=== PATIENT | male | born 1950 | race Caucasian/White ===

== ENCOUNTER 2023-09-15 06:09 | Day surgery (SDC) | payer MEDICARE, SELFPAY ==
[2023-09-08 12:13] VITALS: BMI 32.6
[2023-09-15] VITALS (13 sets, daily range): BP systolic 111–147; BP diastolic 66–94; PULSE 67–94; RESP 12–21; TEMP 36.1–36.6; O2SAT 93–96; BMI 30.4; BMI 32.7
--- NOTE | 2023-09-15 06:32 | DI.RAD.S_ITS ---
PROCEDURE: XR KNEE LT 1TO2V INDICATIONS: TKA TECHNIQUE: 2 view(s) of the knee acquired. COMPARISON: None. FINDINGS: Bones: Patient is status post knee joint arthroplasty. Hardware components are in expected positions. Visualized bony structures are intact. Soft tissues: Overlying postoperative changes are noted. IMPRESSION: Expected post-operative appearance of a knee arthroplasty. Dictated by: Jose Luis Do M.D. on 09/15/2023 at 11:54 Approved by: Jose Luis Do M.D. on 09/15/2023 at 11:54
--- NOTE | 2023-09-15 07:14 | PM.PREOP ---
Pre-operative Note Interval Note History & Physical reviewed/Exam performed by Physician: Yes Changes to H&P: No
[2023-09-15] MEDS: CELECOXIB 200 MG CAPSULE 400 MG PO (07:16)
[2023-09-15] MEDS: ACETAMINOPHEN 325 MG TABLET 975 MG PO (07:16)
[2023-09-15] MEDS: LACTATED RINGERS 1,000 ML 42 ML IV ×2 (07:19→08:49)
[2023-09-15 07:36] LABS: Add Manual Diff / Slide Review NO; Basophils Absolute Auto 0 /uL (0-100); Basophils Percent Auto 0.5 % (0-2); Eosinophils Absolute Auto 700 /uL (0-450); Eosinophils Percent Auto 10.7 % (2-4); Hematocrit 43.5 % (41-53); Hemoglobin 14.8 g/dL (13.5-17.5); Lymphocytes Absolute Auto 1400 /uL (1100-4500); Lymphocytes Percent Auto 20.7 % (25-40); Mean Corpuscular HGB Conc 34.1 % (30-36); Mean Corpuscular Hemoglobin 36.8 PG (26-34); Mean Corpuscular Volume 107.6 fL (80-100); Monocytes Absolute Auto 600 /uL (0-900); Monocytes Percent Auto 8.1 % (3-14); Neutrophils Absolute Auto 4100 /uL (1500-7000); Platelet Count 253 X10^3/uL (150-400); Red Blood Cell Count 4.04 X10^6/uL (4.5-5.9); Red Cell Distribution Width 16.2 % (11.6-14.8); White Blood Cell Count 6.9 X10^3/uL (4.5-11.0)
--- NOTE | 2023-09-15 07:45 | P.OP_ITS ---
Operative Date/Time/Diagnoses Date of procedure: 09/15/23 Time of procedure: 08:00 Pre-op diagnosis: Left knee arthritis M17.12 Polycythemia vera Post-op diagnosis: same Procedure & Clinicians Procedure: Total knee arthroplasty left CPT code 77100 Robotic assisted surgery [id number] Computer-assisted navigation CPT code 16624 Same procedure as scheduled: Yes Indications: The patient is a 73-year-old male with end-stage [id number] knee arthritis. The patient has a significant valgus left knee arthritis. They have failed conservative treatment with activity modifications, injections, physical therapy and bracing. They has been indicated for total knee replacement. The risks and benefits of the procedure have been discussed with the patient even opportunity to ask questions. He has a comorbid condition of polycythemia vera. We discussed risks of wound healing problems, bleeding and thrombosis specific to his comorbid conditions and medications to manage it. Risks and benefits were weighed. The risks of surgery include but are not limited to infection,, wound healing problems, bleeding, fracture, loosening, persistence of pain, damage to nerves and blood vessels, need for additional procedures, DVT, PE, cardiopulmonary complications and . The patient expressed a thorough understanding of the risks and benefits of surgery and has elected to proceed. Consent was signed. During the operation the services of physician instructor adjunct surgical technician were medically indicated and necessary to provide the exposure of the operative site for the surgical procedure and to maintain the limb in a proper position to carry out the procedure safely and efficiently. Without a qualified botany laboratory assistant being present this would extend the operative procedure and would have made the procedure more technically difficult to perform. The instructor adjunct surgical technician was medically necessary for the proper positioning, retraction and manipulation of the limb, proper exposure, and manipulation of the tissue for implantation implants and closure. Surgeon: Stacie Chávez Radiation Control Technician: Linda Bateman Anesthesia Type: General, Peripheral nerve block and Local Operative Notes Findings: End-stage valgus knee arthritis left knee large osteophytes. Full-thickness cartilage loss. Closure Type: primary Specimen(s): none sent Prosthetic devices, grafts, tissues, transplants, or devices: Carreon and Nephew journey 2 bCS Femur Oxinium size 9 Tibia size 7 Poly 10 mm Patella 35 x 9 Estimated Blood Loss (mL): 50 Tourniquet time (min): 105 Procedure in detail: Patient was seen in the preoperative area where the patient and site of surgery were identified in the operative knee was marked informed consent confirmed. This was the left knee. Patient received the appropriate preoperative antibiotics this was 2 g of Ancef. And other preoperative medications and was taken to the operating room placed on operating table in the supine position. Spinal anesthetic were administered. The operative extremity was then prepped and draped in the standard sterile fashion with a nonsterile tourniquet high on the thigh. Patient was placed on the green foam bolsters. A lateral post was placed at the level of the proximal thigh /trochanter area as a lateral post. Formal time-out procedure was performed confirming the patient's side and site of surgery and administration of appropriate preoperative antibiotics and imp lants were in the room accounted for. All were in agreement. Patient received a preoperative dose of tranexamic acid and then a 2nd dose at tourniquet release Patient was prepped and draped in the standard sterile fashion and the foot was placed into the leg davalos. This was taken into high flexion and the incision was marked out over the anterior knee to the level of the medial tubercle tuber sd. The Esmarch was then used for exsanguination and the tourniquet was inflated to 250 mmHg. Was made through the skin and subcutaneous tissue in high flexion this was then brought down into 30? of flexion for the medial parapatellar arthrotomy. A marker pen was used to karla the arthrotomy site for later repair. Joint fluid was evacuated. The anterior osteophytes and soft tissues were removed. Routine medial release was initially made along the medial proximal tibia with Bovie. The patella was 1st cut using the saw sized and prepped and then subluxed throughout the case and protected. The leg was then taken into extension and the patella was everted and the patella was cut to accommodate the patellar button. This was sized to a 35 mm button for a 9 mm thickness to recreate the original dimensions of the patella. Poly was removed and the protector replaced and the patella was subluxed and the knee was taken back up into flexion and attention was returned to the femur. Then the rotational landmarks of Whitesides line and the trans epicondylar axis were marked on the femur with electrocautery. ACL and PCL were released. Then the Cori robotic pins were placed into the femur and tibia and the race set up. Landmarks were established and the robotic planning was commenced. Plan was developed and improved and adjusted as necessary to create a balanced knee. Robotic Initial alignment was noted to be 3? valgus plane correction to 0-1 degree of valgus. Femur external rotation was 5?. Knee was balanced 2 mm in extension and flexion. Plan was satisfactory the bur was used to remove the distal femur then the 5 in 1 cutting block was applied complete the femur cuts. Attention was then turned to the tibia and the tibial resection was made in accordance with the robotic planning. The trials were placed. And the femoral notch was cut a standard fashion using Reamer then slap hammer. The knee was trialed and the checked. Knee was balanced in flexion extension. Range of motion 0-135 degrees was obtained. The rotation femoral trial was marked Bovie on the bone and checked with a long timothy. The tibia was then finished with a drill and flange cut and then The trial implants were removed. Then in extension the posterior capsule was injected with a mixture of 40 mL of 0.25% Marcaine and 20 mL of 266 mg Exparel care to avoid excessive injection posterior laterally. The remainder of this was saved for the capsule and subcutaneous tissue and placed during cement curing. The wound and bone was irrigated with pulsatile lavage. This was then dried with a sponge. The components were verified and opened and the cement was mixed. Cement was applied to the components and then to the bone then the tibia was cemented in place 1st followed by the femur then the patella. Excess cement was removed. With care looking around the back of the knee. Remainder of the injection was injected around the capsule. trial poly was placed back in the leg was placed into extension for the patellar cementing. After this was cured approximately 15 minutes later and the dilute Betadine solution was placed for at least 3 minutes in the wound this was then irrigated out and the final poly was placed. This was a 10 mm mm poly. The tourniquet was released hemostasis was achieved. Final 1g of tranexamic acid was given IV at the time of tourniquet release. The capsule was closed with 1. Ethibond suture. Followed by a running Quill stitch. Subcutaneous layer was closed with 3-0 Vicryl suture. Skin was closed with a running V lock suture Stratafix Monocryl type suture and Dermabond. An tish dressing was placed . An Brodie wrap was applied. Anesthetic was terminated the patient was woken from anesthesia and taken to recovery room in good condition. There no immediate complications from this procedure. The patient will be maintained on a standard total knee replacement protocol with weight-bearing as tolerated. Complications: none Post-operative Condition: stable Disposition: PACU Plan for aftercare: Patient will be admitted postop for observation and repeat CBC in the morning due to his underlying polycythemia vera. If platelet level stabilized we will restart hydroxyurea postop day 1. Will maintain on 81 mg of aspirin. And will use 40 mg of Lovenox as a subcutaneous injection for DVT prophylaxis for 3 weeks postop. Tish dressing will remain in place. After 1 week and then the battery runs out the tish dressing hose can be cut.
[2023-09-15] MEDS: CEFAZOLIN 2 GM/100 ML PREMIX 100 ML IV ×2 (08:00→15:27)
[2023-09-15] MEDS: TRANEXAMIC ACID 1,000 MG VIAL 1000 MG INJ ×2 (08:04→10:03)
--- NOTE | 2023-09-15 08:19 | SUR.OPER ---
Supine on padded OR bed. Pillow under head, arms secured on padded armboards <90 degree abduction. Safety belt across torso. Non-operative leg secured with tape over blanket over lower leg. Operative leg secured in DeMayo positioner. Foam padded brace at thigh of operative leg.
[2023-09-15] MEDS: BUPIVACAINE 0.25% (PF) 60 ML, EPINEPHrine 0.15 MG INJ (08:27)
[2023-09-15] MEDS: BUPIVACAINE LIPOSOME 266 MG/20 ML VIAL INJ (10:00)
[2023-09-15] MEDS: BENZOCAINE/MENTHOL 1 LOZ PKT 1 EACH PO (10:56)
[2023-09-15] MEDS: LACTATED RINGERS 1,000 ML 120 ML IV (10:59)
[2023-09-15] MEDS: KETOROLAC 30 MG/ML VIAL 15 MG IV (11:07)
--- NOTE | 2023-09-15 11:59 | PC.NURSE ---
Pt to room 215 via bed from PACU. Pt is awake, alert, and oriented. IV infusing as ordered. SCD's on and running. Bed alarm on for safety. Requested Pt to not get up without assistance and to call for assistance as needed. Pt oriented to room, call light, bed controls, and tv controls. Pt denies nausea, pain, or shortness of breath. Encouraged ankle waves and deep breathing exercises. Water provided to drink. Pt denies needs at this time. Spouse has been called per Pt request.
--- NOTE | 2023-09-15 13:16 | OT.IPNOTE ---
Pt states still feels numb from waist down and not wanting to get up at this time. Able to request food from the pt from nursing.
--- NOTE | 2023-09-15 13:30 | PT.IIE ---
Current Diagnoses Unilateral primary osteoarthritis, left knee (09/15/23) Surgery Performed Operation Date: 09/15/23 07:45 Actual Procedures p Total Knee Arthroplasty - Robot(Left) - Stacie Chávez MD Surgical History (Last Updated 09/08/23 @ 13:11 by Bonnie Pierre, RN) Hx of hernia repair Hx of prostatectomy (~2019) Medical History (Last Updated 09/08/23 @ 13:14 by Bonnie Pierre, RN) HTN (hypertension) Osteoarthritis Polycythemia vera Prostate cancer Seasonal allergies Physical Therapy Inpatient Evaluation/Re-Eval M1 PT/OT-IP Prior Functional Status Start: 09/15/23 14:31 Freq: NEEDED Status: Active Protocol: Document 09/15/23 13:30 AB (Rec: 09/15/23 14:59 AB [id number]) Medical Review Prior Functional Status Medical History Reviewed Yes Communication able to make needs known Mobility and Gait pt stated that he was independent with all mobilities and ambulation without AD Social History Household Members spouse Living Arrangements Other Number of Floors (Floors) One Floor Number of Stairs To Enter/Railing? pt lives in a building above a bookstore with 18 steps L rail ascending to enter Home Environment Standard Height Toilet,Walk in Shower,Bidet Home Equipment Front Wheel Walker,Straight Cane,Hand Held Shower Additional Social History Comment spouse stated that she can assist pt but due to L ankle issue, can be limited with assistance she can provide M2 PT-IP Current Condition Start: 09/15/23 14:31 Freq: NEEDED Status: Active Protocol: Document 09/15/23 13:30 AB (Rec: 09/15/23 14:59 AB [id number]) Physical Therapy Current Condition Current Condition Evaluation Date 09/15/23 Treatment Diagnosis s/p L TKA; difficulty in walking Onset Date 09/15/23 M3 PT-IP Subjective Start: 09/15/23 14:31 Freq: NEEDED Status: Active Protocol: Document 09/15/23 13:30 AB (Rec: 09/15/23 14:59 AB [id number]) Subjective Physical Therapy Visit Type Type Initial Evaluation Visit Start Time 13:30 Visit Stop Time 14:30 Number of COMMUNICATIONS ASSISTANT Visits 0 Physical Therapy Visit Comments Patient Comments agreeable to do PT Therapy Pain Assessment Pain When Pain Assessed At Rest Pain Present Pain Present Pain Reported Location left knee Intensity 4 Scale Used Numeric (0 - 10) Pain Behaviors Guarding,Holding Area Pain Management Techniques Apply Cold,Distraction, Modification of Treatment,Re- positioning,Timing of Activity with Medications M4 PT-IP Mobility and Gait Start: 09/15/23 14:31 Freq: NEEDED Status: Active Protocol: Document 09/15/23 13:30 AB (Rec: 09/15/23 14:59 AB [id number]) PT-Bed Mobility Assessment Supine to Sit Supine to Sit Standby Assistance PT-Transfer Assessment Sit to and From Stand Sit to and from Stand Moderate Assistance,1 Person Assistance,Use of Upper Extremities Equipment Transfer Assistive Device Gait Belt,Front Wheeled Walker Orthotic/Prosthetic Devices or Brace: No Transfers Transfer Destination Chair Transfer Technique ambulated Transfer Ability Level of Assist Moderate Assistance,Maximum Assistance,1 Person Assistance ,Use of Upper Extremities Comments Mobility Comments pt supine in bed and agreeable to do PT. spouse in room with pt. pt stated that sensation on BLE and movement are back but still numb on his buttocks . obtained PLOF and home set up from pt. post-op folder provided and reviewed contents . reviewed HEP. BP in supine: 125/71 O2 sat: 96% DE: 66 pt completed heel slides prior to getting up. pt completed supine to sit SBA. able to sit on EOB SBA. c/o slight lightheadedness. BP checked: 121/68. pt stated that his LE is still sligthly numb. completed sit to stand mod A and max cues. pt unable to control his bladder and stated that he has to void. instructed pt to sit back on EOB. provided urinal. pt completed sit to stand again mod A and was able to maintain standing using FWW mod A while using the urinal. nurse in room to assist. pt sat back on EOB. assisted with gown and socks change. completed sit to stand from EOB mod A. assisted with brief management. pt ambulated in room 5 ft using FWW mod to max A and max cues. cued for L quads activation and pt unable to engage quads and stated that he cannot feel his quads and calf. instructed pt to backed up on to the chair. positioned pt on the chair. call light and table placed within reach. caregiver training set up with pt's spouse for tomorrow at 9 am. Gait Assessment Gait Gait Assistance Required: Moderate Assistance,Maximum Assistance Distance (Feet) 5 Able to Maintain Weight Bearing Status Yes During Gait Assistive Devices Assistive Device Gait Belt,Front Wheeled Walker Orthotic/Prosthetic Devices or Brace: No Gait Deviations General Gait Pattern Antalgic,Decreased Stride Length,Decreased Feet Clearance,Step-to Gait Factors Limiting Gait Function Factors Limiting Gait Function Decreased Activity Tolerance, Decreased Sensation,Decreased Strength,Difficulty Following Directions,Limited Range of Motion,Pain,Poor Balance,Poor Safety Awareness PT-Balance Assessment Sitting Balance and Reactions Static Sitting Balance Ability Normal Dynamic Sitting Balance Ability Good Standing Balance and Reactions Static Standing Balance Ability Fair Dynamic Standing Balance Ability Poor Device Used FWW M5 PT-IP Objective Assessments Start: 09/15/23 14:31 Freq: NEEDED Status: Active Protocol: Document 09/15/23 13:30 AB (Rec: 09/15/23 14:59 AB [id number]) Orientation Orientation/Cognition Level of Alertness Alert Orientation Name,Place,Situation Language Function Ability No Deficits Noted Safety Awareness Decreased Safety Awareness Memory Description No Deficits Noted Gross Range of Motion Lower Extremity ROM Assessment Left Impaired Impairments L knee flexion: ~ 70 deg L knee extension: ~ 15 deg less to 0 Strength Lower Extremity Strength Assessment Left Impaired Hip 4-/5 Knee 3+/5 Sensation Assessment Sensation Gross Sensation Right LE Impaired,Left LE Impaired Sensation Description Numbness Muscle Tone Muscle Tone WNL Yes M6 PT-IP Treatment Start: 09/15/23 14:31 Freq: NEEDED Status: Active Protocol: Document 09/15/23 13:30 AB (Rec: 09/15/23 14:59 [id number]) Physical Therapy Treatment Exercises Exercises Heel Slides Education Education Provided Precautions,Weight Bearing Status,Post-Op Packet,Safety M7 PT-IP Assessment and Plan Start: 09/15/23 14:31 Freq: NEEDED Status: Active Protocol: Document 09/15/23 13:30 AB (Rec: 09/15/23 14:59 AB [id number]) PT Summary Assessment and Plan Potential Rehabilitation Potential Fair Status of Condition at Evaluation Evolving Summary Impairments Pain,ROM,Strength,Balance, Coordination,Sensation,Tone, Cognition,Bed Mobility, Transfers,Gait,Activity Tolerance Assessment Summary pt is a 73 y/o M s/p L TKA POD 0. pt is WBAT on LLE. pt requiring mod to max A with mobility using FWW and only ambulated ~ 5 ft. pt with decrease L quads control and c /o numbness on quads and calf affecting mobility. caregiver training set up for tomorrow at 9 am. will continue to assess progress. Goals Bed Mobility Goal Independent Transfer Goal Independent,Front Wheeled Walker Gait Goal Independent,Front Wheel Walker Gait Distance 200 Other Goals up/down 18 steps L rail ascending SBA improve ambulation using LRAD ~ 300 ft mod I Days to Meet Goals 5 Frequency of Treatment Frequency Of Treatment Twice a Day Treatment Plan Physical Therapy Treatment Plan Bed Mobility Training,Transfer Training,Gait Training, Therapeutic Exercise,Balance Retraining,Post Op Education, Discharge Planning,Hot or Cold Pack,Neuromuscular Re-ed, Coordination Retraining,Manual Therapy Weight Bearing Status Weight Bearing Status Weight Bear as Tolerated Allowed Weight Bearing Amount (enter % LLE WBAT or #) (%) Recommendations To Nursing Amount of Assist Needed 1 Person Assist Discharge Recommendations PT Discharge Recommendations Home with Assistance, Outpatient PT Transportation Needs at Discharge Private Vehicle
[2023-09-15] MEDS: OXYCODONE IR 10 MG TABLET PO ×2 (13:40→17:36)
[2023-09-15] MEDS: SENNOSIDES 8.6 MG TABLET 17.2 MG PO (20:56)
[2023-09-15] MEDS: LACTATED RINGERS 1,000 ML 100 ML IV (20:59)
[2023-09-15] MEDS: TRAMADOL 50 MG TABLET PO (21:34)
[2023-09-16] MEDS: CEFAZOLIN 2 GM/100 ML PREMIX 100 ML IV (00:12)
[2023-09-16] MEDS: ACETAMINOPHEN 325 MG TABLET 650 MG PO ×2 (00:44→07:55)
--- NOTE | 2023-09-16 02:33 | PC.NURSE ---
Patient is alert and oriented. Breath sounds diminished but CTA with RA sat of 96%; on continuous oximetry. HRR. BP 111/66 which patient states is low for him so he declined Amlodipine. Denied nausea. BT present and has passed flatus. Voiding without dysuria, frequency or urgency. Is able to turn himself in bed. Ambulated in [place] to room 213 and back to room with walker and 1 assist; is weak but steady. Did have increased pain following ambulation so medicated with Tramadol. BRENDA dressing to left knee is intact and functioning and wrapped with taurus; no drainage noted. CMS is intact bilaterally. Is wearing bilateral calf SCD's when in bed. CIWA score was 0. Fall risk score is moderate and bed alarm is activated.
[2023-09-16] MEDS: TRAMADOL 50 MG TABLET PO (05:11)
[2023-09-16 05:45] LABS: Add Manual Diff / Slide Review NO; Basophils Absolute Auto 0 /uL (0-100); Basophils Percent Auto 0.1 % (0-2); Eosinophils Absolute Auto 0 /uL (0-450); Eosinophils Percent Auto 0.1 % (2-4); Hematocrit 39.5 % (41-53); Hemoglobin 13.2 g/dL (13.5-17.5); Lymphocytes Absolute Auto 800 /uL (1100-4500); Lymphocytes Percent Auto 6.6 % (25-40); Mean Corpuscular HGB Conc 33.3 % (30-36); Mean Corpuscular Hemoglobin 36.2 PG (26-34); Mean Corpuscular Volume 108.7 fL (80-100); Monocytes Absolute Auto 1300 /uL (0-900); Monocytes Percent Auto 11.5 % (3-14); Neutrophils Absolute Auto 9500 /uL (1500-7000); Neutrophils Percent Auto 81.7 % (50-75); Platelet Count 232 X10^3/uL (150-400); Red Blood Cell Count 3.64 X10^6/uL (4.5-5.9); Red Cell Distribution Width 16.1 % (11.6-14.8); White Blood Cell Count 11.6 X10^3/uL (4.5-11.0)
[2023-09-16 08:00] VITALS: BP 118/63; PULSE 77; RESP 16; TEMP 36.4; O2SAT 97
--- NOTE | 2023-09-16 08:34 | PM.DS.1 ---
History of Present Illness History of Present Illness Date Patient Seen: 09/16/23 Time Patient Seen: 08:34 Chief complaint: Knee pain Narrative: Left knee pain is [id number]. Denies fever or chills. No nausea or vomiting. Patient has several steps to get into his apartment. Patient's is home to assist him. Discharge Providers Provider Discharge Date: 09/16/23 Consults: 09/15/23 11:18 Consult to Discharge Planning Routine Comment: Consult to Occupational Therapy Evaluate & Treat Comment: Physician Instructions: Evaluate and treat Consult to Physical Therapy Evaluate & Treat Comment: Physician Instructions: postop TKA protocol Discharge provider: Anish Leon PA-C Summary Hospital Course Discharge Diagnosis: Left knee arthritis Hospital Course: Total knee arthroplasty left CPT code 59248 Robotic assisted surgery [id number] Computer-assisted navigation CPT code 05896 Same procedure as scheduled: Yes Indications: The patient is a 73-year-old male with end-stage gcwu-yr-fghz knee arthritis. The patient has a significant valgus left knee arthritis. They have failed conservative treatment with activity modifications, injections, physical therapy and bracing. They has been indicated for total knee replacement. The risks and benefits of the procedure have been discussed with the patient even opportunity to ask questions. He has a comorbid condition of polycythemia vera. We discussed risks of wound healing problems, bleeding and thrombosis specific to his comorbid conditions and medications to manage it. Risks and benefits were weighed. The risks of surgery include but are not limited to infection,, wound healing problems, bleeding, fracture, loosening, persistence of pain, damage to nerves and blood vessels, need for additional procedures, DVT, PE, cardiopulmonary complications and . The patient expressed a thorough understanding of the risks and benefits of surgery and has elected to proceed. Consent was signed. During the operation the services of physician surgical appliances salesperson were medically indicated and necessary to provide the exposure of the operative site for the surgical procedure and to maintain the limb in a proper position to carry out the procedure safely and efficiently. Without a qualified gynecological assistant being present this would extend the operative procedure and would have made the procedure more technically difficult to perform. The surgical appliances salesperson was medically necessary for the proper positioning, retraction and manipulation of the limb, proper exposure, and manipulation of the tissue for implantation implants and closure. Surgeon: Stacie Chávez Slitter Processed Film: Linda Bateman Anesthesia Type: General, Peripheral nerve block and Local Operative Notes Findings: End-stage valgus knee arthritis left knee large osteophytes. Full-thickness cartilage loss. Closure Type: primary Specimen(s): none sent Prosthetic devices, grafts, tissues, transplants, or devices: Carreon and Nephew vianca 2 bCS Femur Oxinium size 9 Tibia size 7 Poly 10 mm Patella 35 x 9 Estimated Blood Loss (mL): 50 Tourniquet time (min): 105 Patient admitted for left total knee arthroplasty. Patient consented to the same. Patient underwent total knee arthroplasty, left September 15, 2023. Patient is in his room recovering well as in stable condition. Patient's is home and available to assist him. Patient has several steps into his place. Patient has polycythemia vera. Labs reviewed. Restart hydroxyurea today. Patient will be on 81 mg of aspirin daily and 40 mg of Lovenox subQ for 3 weeks postop. Juan dressing instructions reviewed. Follow up outpatient orthopedic clinic in 2 weeks. Weightbearing as tolerated. Discharge home today after physical therapy is safe for home environment. Exam Vital Signs (past 8 hours): - 09/16/23 08:00 Temperature 97.5 F L Pulse Rate 77 Respiratory Rate 16 Blood Pressure 118/63 Pulse Oximetry 97 Oxygen Flow Rate 0 Oxygen Delivery Method Room Air Oxygen Flow Rate 0 Narrative Exam Narrative: 73-year-old male resting comfortably in bed in no apparent distress. Juan dressing is on and functioning. Neurovascular status is intact distal left lower extremity. Const General: cooperative and comfortable Nutritional Appearance: average body habitus Orientation: alert Resp Effort & Inspection: normal respiratory effort and able to speak in complete sentences Objective Labs 09/16/23 05:05 Labs: Laboratory Results - last 24 hr 09/16/23 05:05 WBC 11.6 H D RBC 3.64 L Hgb 13.2 L Hct 39.5 L MCV 108.7 H MCH 36.2 H MCHC 33.3 RDW 16.1 H Plt Count 232 Neut % (Auto) 81.7 H D Lymph % (Auto) 6.6 L Pershing % (Auto) 11.5 Eos % (Auto) 0.1 L Baso % (Auto) 0.1 Neut # (Auto) 9500 H Lymph # (Auto) 800 L Pershing # (Auto) 1300 H Eos # (Auto) 0 Baso # (Auto) 0 PFSH Medical History (Updated 05/22/24 @ 13:14 by Bonnie Pierre RN) Osteoarthritis Polycythemia vera Prostate cancer HTN (hypertension) Seasonal allergies Surgical History (Updated 09/08/23 @ 13:11 by Bonnie Pierre RN) Hx of prostatectomy (~2019) Hx of hernia repair Social History household members: spouse Smoking Status: Never smoker alcohol intake: current Discharge Assessment & Plan Assessment and Plan Assessment: Patient progressing as expected status post left total knee arthroplasty Plan of Treatment: Patient will be maintained on standard total knee replacement protocol. Weightbearing as tolerated. Restart hydroxyurea today. Lovenox 40 mg subQ daily x3 weeks, 81 mg aspirin daily. Juan dressing instructions reviewed Follow up outpatient Orthopedics in 2 weeks Discharge home today after physical therapy if safe for home environment. Discharge Plan Discharge Plan Patient Disposition: Home Discharge orders & Medications Discharge Orders: Discharge (Order); Ordered 09/16/23 Ordered By: Anish Leon Prescriptions: New enoxaparin [Lovenox] 40 mg/0.4 mL syringe 40 mg SUBCUT DAILY Qty: 4 1RF Rx Instructions: postop dvt prophy ondansetron HCl 4 mg tablet 4 mg PO Q8H PRN (Reason: nausea and vomiting) Qty: 5 1RF acetaminophen 325 mg Tablet 650 mg PO Q6H PRN (Reason: Fever/Mild Pain (1-3)) Qty: 60 0RF Continued hydroxyurea 500 mg Capsule 500 mg PO QAM amlodipine 5 mg Tablet 5 mg PO BEDTIME aspirin 81 mg Tablet,Delayed Release (Dr/Ec) 81 mg PO DAILY Follow up/Referrals: Stacie Chávez MD [Physician] - 09/28/23 10:30 am (Follow up w/ Raymundo Lugo PA-C, at [facility] office in [place].) Diet/Activity/Treatments Diet: Diet as Tolerated Activity: Weightbear as tolerated. Commence knee range motion. Other treatments: Dressing/Wound care: -Remove the Brodie wrap 48 hours after surgery. -Keep juan dressing in place until postoperative follow-up office visit. -you may see some drainage on the bandage, this is ok. If it is leaking or saturated, then the dressing can be changed to clean gauze or a clean surgical dressing from a pharmacy or reinforced with additional gauze and paper tape or dressings over the top. Otherwise, just keep dressing in place until follow up. Juan battery we will work for 7 days at that time battery for the VAC dressing was stopped and the hose can be cut. The rest of the dressing should remain in place just like a Band-Aid. -Okay to shower. Keep wound out of direct water stream. No soaking or submerging until all the scabs fall off (approximately 6 weeks). -Please call the office if dressing becomes significantly wet, soiled, or saturated. Activities: -Weight-bearing as tolerated. Use front wheeled walker, and progress to cane when safe. -Continue with home exercises as directed by your physical therapist. -Elevate ?toes above the nose if you have significant swelling in your lower leg. (A wedge pillow is easiest.) -Ice your incision as needed for pain/inflammation/swelling. Protect your skin with a folded pillowcase. Follow-up: -Follow-up with your surgeon or PA in the office in 10-14 days after surgery. -Follow-up with your surgeon 6 weeks postoperatively. Call the office if you have chest pain, shortness of breath, significant swelling that will not resolve with elevating, fever over 101?, significantly worsening pain. [facility]: [phone] You have been discharged with medications. These have already been sent to your pharmacy. Pain include pain medications: Tramadol 50 mg 1 tablet by oral route every 6 hours as needed for postop. May take 2 hours. If This medication is not working then you may call the clinic for prescription for different pain medication, such as Oxycodone take 5 mg orally every 4 hours as needed for pain. If your pain is more severe you may take up to 2 or a maximum 3 pills (15 mg) every 4 hours for pain. Take the smallest dose necessary. Narcotic medication can make you feel constipated. You can get tzqu-lsg-kzhjmmp stool softener such as docusate sodium-Colace at a pharmacy to help with this. You also have prescriptions for ibuprofen 800 mg take this 3 times a day for least the 1st 10 days after surgery to help with pain control. And acetaminophen (Tylenol) take 500-1000 mg 3 times a day for pain control. You also have a prescription for Zofran (ondansetron) this is a strong anti nausea medication that can be taken up to every 8 hours as needed for nausea Additionally you will restart her 81 mg aspirin on day after surgery. You have also been described Lovenox 40 mg he will take by subcutaneous injection daily to prevent DVT (blood clot) he will take this for 3 weeks or 20 days after surgery. You have been provided with a 10 day supply and refill--was then sent to your pharmacy. Skin/Wound/Dressing Care Report to your healthcare provider any signs of infection, such as:: chills, fever, night sweats, increased pain, unusual drainage and unusual redness Visit Report/Discharge Packet Instructions: DI for Knee Replacement, DI for Prescription Opioid Use Stand Alone Forms: Patient Portal/API, Surgery Discharge Discharge Data Attending Provider: Stacie Chávez VTE Deep Vein Thrombosis/Pulmonary Embolism Present on Admission: No
[2023-09-16 08:58] VITALS: BP 118/63; PULSE 66; RESP 18; TEMP 36.4; O2SAT 98
[2023-09-16] MEDS: ASPIRIN EC 81 MG TABLET PO (09:03)
[2023-09-16] MEDS: ENOXAPARIN 40 MG/0.4 ML SYRINGE SUBCUT (09:03)
[2023-09-16] MEDS: HYDROXYUREA 500 MG CAPSULE PO (09:04)
[2023-09-16] MEDS: OXYCODONE IR 10 MG TABLET PO (09:04)
--- NOTE | 2023-09-16 09:35 | OT.IP.EVAL ---
Current Diagnoses Unilateral primary osteoarthritis, left knee (09/15/23) Surgery Performed Operation Date: 09/15/23 07:45 Actual Procedures p Total Knee Arthroplasty - Robot(Left) - Stacie Chávez MD Past Medical History (Last Updated 09/08/23 @ 13:14 by Bonnie Pierre, RN) HTN (hypertension) Osteoarthritis Polycythemia vera Prostate cancer Seasonal allergies Surgical History (Last Updated 09/08/23 @ 13:11 by Bonnie Pierre RN) Hx of hernia repair Hx of prostatectomy (~2019) Occupational Therapy Inpatient Evaluation/Re-Eval M1 PT/OT-IP Prior Functional Status Start: 09/15/23 14:31 Freq: NEEDED Status: Active Protocol: Document 09/16/23 10:01 [facility] (Rec: 09/16/23 10:19 [facility] [id number]) Medical Review Prior Functional Status Medical History Reviewed Yes Communication able to make needs known Mobility and Gait pt stated that he was independent with all mobilities and ambulation without AD Activities of Daily Living and IADL's Pt states had difficulty with ADl and IADL needs. Social History Household Members spouse Living Arrangements Other Number of Floors (Floors) One Floor Number of Stairs To Enter/Railing? pt lives in a building above a bookstore with 18 steps L rail ascending to enter Home Environment Standard Height Toilet,Walk in Shower,Bidet Home Equipment Front Wheel Walker,Straight Cane,Hand Held Shower Additional Social History Comment spouse stated that she can assist pt but due to L ankle issue, can be limited with assistance she can provide Pt's spouse got a shower chair for home use. M2 OT-IP Current Condition Start: 09/16/23 10:01 Freq: Status: Active Protocol: Document 09/16/23 10:01 [facility] (Rec: 09/16/23 10:19 [facility] [id number]) Occupational Therapy Current Condition Current Condition Evaluation Date 09/16/23 Treatment Diagnosis S/P LTKA Diagnosis Onset Date 09/15/23 M3 OT- IP Subjective and Pain Start: 09/16/23 10:01 Freq: Status: Active Protocol: Document 09/16/23 10:01 [facility] (Rec: 09/16/23 10:19 [facility] [id number]) OT- Subjective Occupational Therapy Visit Type Type Initial Evaluation Visit Start Time 09:10 Visit Stop Time 09:36 Occupational Therapy Visit Comments Patient Comments Pt in the bathroom when OT came in the see the pt. Patient/Caregiver Goals TO go home and have home health. OT Pain Assessment Pain When Pain Assessed During Mobility Pain Present Pain Present Pain Reported Location left knee Pain Behaviors Facial Grimacing M4 OT- IP ADL's Start: 09/16/23 10: Freq: Status: Active Protocol: Document 09/16/23 10: [facility] (Rec: 09/16/23 10:19 [facility] [id number]) OT XOH-Aqih-Zaiqkln General Evaluation Self-Feeding Ability Independent OT ADL-Grooming Comments OT Grooming Comments Not performed. OT ADL-Oral Care Comments Oral Care Comments Not performed. OT ADL-Dressing Comments OT Dressing Comments Pt just wanting to get back to bed. Educated to dress the LLE first and take out last. Also to be mindful of not to twist his knee during ADL and IADL needs. OT ADL-Toileting General Evaluation Toileting Ability Moderate Assistance Areas Needing Assistance Manage Clothing Comments OT Toileting Comments Educated on how to assist pt for toileting needs. Assist to stand and assist to help pull up the brief over his hips by his . Suggested for pt to take the urinal home to use at night as needed or to assist. OT ADL-Bathing Comments OT Bathing Comments Not performed, as pt wanting to shower at home. Educated on showering care regarding the dressing. M5 OT- IP IADL's Start: 09/16/23 10: Freq: Status: Active Protocol: Document 09/16/23 10: [facility] (Rec: 09/16/23 10:19 [facility] [id number]) OT-Instrumental Activities of Daily Living Deficits IADL Deficits Identified Deficits Home Safety Awareness Awareness of Need for Assistance at Home Good Awareness Home Safety Comments Pt is a little groggy and has a supportive to assist with his needs. Meal Preparation Meal Preparation Caregiver Provides Assist Configuration Engineer Configuration Engineer Caregiver Provides Assist M6 OT- IP Functional Cognition Start: 09/16/23 10:01 Freq: Status: Active Protocol: Document 09/16/23 10:01 [facility] (Rec: 09/16/23 10:19 [facility] [id number]) Cognitive Factors Limiting Selfcare Function Cognitive Ability Level of Alertness Alert Patient Orientation Name,Age,Birthday,Month,Date, Year,Day of Week,Place, Situation Attention Span Ability Capable of Focused Attention, Capable of Sustained Attention Ability to Follow Commands Able to Follow One Step Commands Cognitive Comments Cognitive Assessment Comments Pt able to follow commands for ADl and mobility needs. OT- Vision and Hearing OT- Hearing Assessment OT- Hearing Assessment WFL OT- Vision Assessment Visual Acuity WFL M7 OT- IP Mobility and Balance Start: 09/16/23 10:01 Freq: Status: Active Protocol: Document 09/16/23 10:01 [facility] (Rec: 09/16/23 10:19 [facility] [id number]) OT- Bed Mobility Assessment Sit to Supine Sit to Supine Assist Minimal Assistance OT-Transfer Assessment Sit to and From Stand Sit to and from Stand Minimal Assistance Transfers Transfer Ability Contact Guard Assistance Technique Transfer Destination Bed,Toilet Transfer Technique Stand Step Pivot Devices Transfer Assistive Devices Gait Belt,Front Wheeled Walker Comments Mobility Comments MOOSE to stand from the toilets and cues to to slide his LLE forwards prior to standing. CGA after up for balance. Able to educated his to assist pt with the gait belt. OT- Balance Assessment Sitting Balance and Reactions Static Sitting Balance Ability Good Dynamic Sitting Balance Ability Good Standing Balance and Reactions Static Standing Balance Ability Good Dynamic Standing Balance Ability Fair M8 OT- IP Objective Assessments Start: 09/16/23 10:01 Freq: Status: Active Protocol: Document 09/16/23 10:01 [facility] (Rec: 09/16/23 10:19 [facility] [id number]) OT Gross Range of Motion Upper Extremity Range of Motion Assessment Within Functional Limits OT Strength Upper Extremity Strength Assessment Within Functional Limits M9 OT- IP Assessment and Plan Start: 09/16/23 10:01 Freq: Status: Active Protocol: Document 09/16/23 10:01 [facility] (Rec: 09/16/23 10:19 [facility] [id number]) OT Summary Assessment and Plan Potential Rehabilitation Potential Excellent Analytic Complexity at Evaluation Low Summary OT Impairments Pain,Strength,Balance, Functional Mobility,Dressing, Toileting,Bathing,Toilet Transfers,Shower Transfers, Activity Tolerance Progress Towards Goals Progressing Toward Goals Assessment Summary Pt low complexity and main barriers are pain and now needing assist from his to stand from lower surfaces and assist with ADL needs. Pt 's able to participate with caregiver training with OT for ADL and mobility needs. Pt has 18 steps to his apartment and at this time best to have home health at home. Suggested pt get LB dressing equipment, however pt's states will just assist him at home. Pt to have 24/7 available assist and home health. Goals Self-Feeding Goal Independent Grooming Goal Independent Dressing Goal Minimal Assistance Toileting Goal Independent Bathing Goal Standby Assistance Toilet Transfer Goal Independent Shower Transfer Goal Standby Assistance Days to Meet Goals 2 Frequency of Treatment Frequency Of Treatment Once a Day Treatment Plan OT Treatment Plan ADL Training,Functional Mobility,Patient/Family Education,Discharge Planning Discharge Recommendations OT Discharge Recommendations Home with 24/7 Assist Available,Home Health Transportation Needs at Discharge Private Vehicle
--- NOTE | 2023-09-16 10:29 | PT.IPTN ---
Addendum entered and electronically signed by Mamta Aviles PT 09/16/23 10:42: PT provides direct supervision with SPT during treatment Original Note: Current Diagnoses Unilateral primary osteoarthritis, left knee (09/15/23) Surgery Performed Operation Date: 09/15/23 07:45 Actual Procedures p Total Knee Arthroplasty - Robot(Left) - Stacie Chávez MD Physical Therapy Treatment Note M2 PT-IP Current Condition Start: 09/15/23 14:31 Freq: NEEDED Status: Active Protocol: Document 09/15/23 13:30 AB (Rec: 09/15/23 14:59 AB [id number]) Physical Therapy Current Condition Current Condition Evaluation Date 09/15/23 Treatment Diagnosis s/p L TKA; difficulty in walking Onset Date 09/15/23 M3 PT-IP Subjective Start: 09/15/23 14:31 Freq: NEEDED Status: Active Protocol: Document 09/16/23 08:20 JG (Rec: 09/16/23 09:35 JG [id number]) Subjective Physical Therapy Visit Type Type Treatment Note Visit Start Time 08:20 Visit Stop Time 09:04 Number of BROADCAST METEOROLOGIST Visits 0 Physical Therapy Visit Comments Patient Comments Pt was hoping to have breakfast before PT today but was overall agreeable. Therapy Pain Assessment Pain When Pain Assessed During Exercise Pain Present Pain Present Pain Reported Location left knee Intensity 8 Scale Used Numeric (0 - 10) Pain Behaviors Calling Out,Facial Grimacing, Moaning Pain Management Techniques Re-positioning M4 PT-IP Mobility and Gait Start: 09/15/23 14:31 Freq: NEEDED Status: Active Protocol: Document 09/16/23 08:20 JG (Rec: 09/16/23 09:35 JG [id number]) PT-Bed Mobility Assessment Rolling Type of Rolling Roll to Right Level of Assist Independent Supine to Sit Supine to Sit Independent Scooting Scooting to Edge of Bed Independent PT-Transfer Assessment Sit to and From Stand Sit to and from Stand Contact Guard Assistance,Use of Upper Extremities Equipment Transfer Assistive Device Gait Belt,Front Wheeled Walker Orthotic/Prosthetic Devices or Brace: No Transfers Transfer Destination Chair,Toilet,Wheelchair Transfer Technique ambulated Transfer Ability Level of Assist Contact Guard Assistance, Minimal Assistance Comments Mobility Comments Mutiple STS: EOB to walker, to and from wheelchair, to and from toilet and wheelchair and to and from recliner. RW with CGA for all except transfer to sitting on toilet that was lower he needed min A. Gait Assessment Gait Gait Assistance Required: Contact Guard Assist Distance (Feet) 50 Able to Maintain Weight Bearing Status Yes During Gait Assistive Devices Assistive Device Gait Belt,Front Wheeled Walker Orthotic/Prosthetic Devices or Brace: No Gait Deviations General Gait Pattern Antalgic,Decreased Stride Length,Decreased Feet Clearance,Step-to Gait Factors Limiting Gait Function Factors Limiting Gait Function Decreased Activity Tolerance, Decreased Strength,Limited Range of Motion,Pain,Poor Balance Comments Gait Comments 50'x1, 5'x2, 10'x1, 15'x1 with pt performing similar gait pattern in room, from w/c to steps and back and from w/c to toilet and then to chair. Pt had inc pain as they had inc time on feet. Stair Climbing Assessment Evaluation Level of Assist On Stairs Contact Guard Assistance Devices Stair Climbing Assistive Devices Left Railing Technique/Endurance Stair Climbing Direction Ascend and Descend Stair Climbing Technique Step to Step Number of Steps Climbed 3 Stair Climbing Set # Repetitions (reps) 1 Comments Stair Climbing Comments PT demo stair training before pt attempts. Pt then performs gait with both hands on left rail ascend, facing the rail and ascend first with right foot and descend first with left foot. PT-Balance Assessment Sitting Balance and Reactions Static Sitting Balance Ability Good Dynamic Sitting Balance Ability Good Standing Balance and Reactions Static Standing Balance Ability Good Dynamic Standing Balance Ability Fair Device Used FWW M5 PT-IP Objective Assessments Start: 09/15/23 14:31 Freq: NEEDED Status: Active Protocol: Document 09/15/23 13:30 AB (Rec: 09/15/23 14:59 AB [id number]) Orientation Orientation/Cognition Level of Alertness Alert Orientation Name,Place,Situation Language Function Ability No Deficits Noted Safety Awareness Decreased Safety Awareness Memory Description No Deficits Noted Gross Range of Motion Lower Extremity ROM Assessment Left Impaired Impairments L knee flexion: ~ 70 deg L knee extension: ~ 15 deg less to 0 Strength Lower Extremity Strength Assessment Left Impaired Hip 4-/5 Knee 3+/5 Sensation Assessment Sensation Gross Sensation Right LE Impaired,Left LE Impaired Sensation Description Numbness Muscle Tone Muscle Tone WNL Yes M6 PT-IP Treatment Start: 09/15/23 14:31 Freq: NEEDED Status: Active Protocol: Document 09/16/23 08:20 JG (Rec: 09/16/23 10:04 JG [id number]) Physical Therapy Treatment Exercises Exercises Ankle Pumps,Heel Slides Education Education Provided Weight Bearing Status,Safety Other Treatments Other Treatment Performed LAQs once up in chair Toilet training with pt needing max A to don socks d/t left leg pain and decreased ROM and set-up for donning briefs Of note, pt con't to lack left knee extension and flexion today, he has swelling and high WBCs as well as high pain and so not pushed, preferred function M7 PT-IP Assessment and Plan Start: 09/15/23 14:31 Freq: NEEDED Status: Active Protocol: Document 09/16/23 08:20 JG (Rec: 09/16/23 09:35 JG [id number]) PT Summary Assessment and Plan Potential Rehabilitation Potential Good Status of Condition at Evaluation Evolving Summary Impairments Pain,ROM,Strength,Balance, Transfers,Gait,Activity Tolerance Progress Towards Goals Progressing Toward Goals Assessment Summary Pt progresses with PT today. He is I with bed mobility and CGA for most transfers and for gait. He completes stair training. He will have up to two person assistance at d/c. PT did not do 18 steps because of his high pain and he can perform three steps well. Of note, pt did have urinary incontinence today. Goals Transfer Goal Independent,Front Wheeled Walker Gait Goal Independent,Front Wheel Walker Gait Distance 100 Other Goals up/down 6 steps L rail ascending SBA Days to Meet Goals 5 Frequency of Treatment Frequency Of Treatment Once a Day Treatment Plan Physical Therapy Treatment Plan Bed Mobility Training,Transfer Training,Gait Training, Therapeutic Exercise,Balance Retraining,Post Op Education, Discharge Planning,Hot or Cold Pack,Neuromuscular Re-ed, Coordination Retraining,Manual Therapy Other Recommendations and Next Treatment Focusing on progression of Focus stair training, balance training, transfer training STS Weight Bearing Status Weight Bearing Status Weight Bear as Tolerated Allowed Weight Bearing Amount (enter % LLE WBAT or #) (%) Recommendations To Nursing Amount of Assist Needed 1 Person Assist Discharge Recommendations PT Discharge Recommendations Home with Assistance, Outpatient PT Transportation Needs at Discharge Private Vehicle
--- NOTE | 2023-09-16 10:50 | CM.DANOTE ---
Initial DCP Assessment Note Pt is a 73 yo male, resident of [place], now POD#1 from left TKA by Dr Chávez PCP: Leeanna Menjivar Payer: [employer] Reviewed chart, pt discussed in multidisciplinary rounds this morning. Therapy has cleared pt for return home w/family to assist and pt has planned for home, DC order from Ortho has already been initiated this morning. Therapies recommending HH upon discharge. Met w/patient and spouse to review discharge plan; both agree HH services would be helpful. Patient/spouse request [facility]. [facility] and HH order completed. YARIEL Dejesus, kindly agreed to get this referral to [facility]. Plan: Discharge home w/spouse to assist, [facility] RN/PT/OT and close outpatient f/u recommended. DENIS Cote Discharge Planning/Care Management CM Discharge Assessment Start: 09/16/23 10:46 Freq: Status: Active Protocol: Document 09/16/23 10:46 BREANA (Rec: 09/16/23 10:50 BREANA [id number]) Discharge Planning Assessment Assigned Director Of [employer] DENIS Talley DPOA/Assigned Designee Name Erica Garcia, spouse Contact Information [phone] Advance Directives? No History Provided By Patient,Significant Other, Medical Record Prior Living Arrangements Other Household Members spouse Type of transporation used prior to Drives own vehicle admit Independent with ADL's Yes Is patient alert and oriented? Yes Patient/Family Preference Home with Home Health Barriers to Discharge No Discharge Plan Home with Home Health Transportation Arrangement Spouse Referrals Initiated Home Health Medicare Choice List Provided Yes SNF/HH Preference [facility] Comment Anjelica SALDIVAR to contact, F2F and HH order completed
--- NOTE | 2023-09-16 10:56 | PC.NURSE ---
Pt is dressed and ready for discharge home with Spouse. IV has been removed. Went over d/c instructions with Pt and Spouse-discussed d/c meds, time of last dose, reviewed stroke education, s/s of infection, BRENDA dsg, Enoxaparin administration, drinking plenty of fluids to prevent constipation or dehydration, do not exceed 3000mg of Acetaminophen in 24 hours and follow up. Pt has Home Health set up and has spoken with Care Management. Pt will be discharged out via w/c by [facility]PER[facility] to POV with Spouse and all belongings.
== END 2023-09-16 11:30 | disposition home or self-care (01) ==
LOC: OR 06:13 → AC 06:13
PROVIDERS: Referring Provider Orthopaedic Surgery Foot and Ankle Surgery; Visit Provider Orthopaedic Surgery Foot and Ankle Surgery
PROC: 0SRD0JZ Replacement of Left Knee Joint with Synthetic Substitute, Open Approach (ICD-10-PCS; CPT 27447; principal; 2023-09-15 07:45)
DX: M17.12 Unilateral primary osteoarthritis, left knee (principal); M25.762 Osteophyte, left knee; D45 Polycythemia vera; G89.18 Other acute postprocedural pain
CPT/HCPCS: 27447; 20985; 64447; 73560; 85025; 97116; 97162; 97165; 97530; C1776; C9290; J0171; J0690; J1100; J1650; J1885; J2250; J2405; J2704; J3010

== ENCOUNTER → 2023-09-28 12:29 | Outpatient (CLI) | payer MEDICARE, SELFPAY ==
[2023-09-15 11:44] VITALS: BMI 32.7
--- NOTE | 2023-09-28 | DI.US.S_ITS ---
PROCEDURE: US PERIPH VENOUS LOW EXTREM LT INDICATIONS: PAIN IN LEFT KNEE, RULE OUT DVT TECHNIQUE: Real-time imaging, as well as color and pulse Doppler interrogation, were performed of the lower extremity deep veins from the inguinal ligament to the popliteal fossa, with documentation of the visualized calf veins. COMPARISON: None. FINDINGS: The common femoral, femoral, popliteal, and the visualized calf veins are normally compressible, and free of intraluminal thrombus. Color and pulse Doppler demonstrate normal phasic intraluminal flow. There is normal augmentation response to distal compression maneuver. IMPRESSION: Negative for deep venous thrombosis. Dictated by: Denis Penaloza M.D. on 09/28/2023 at 13:14 Approved by: Denis Penaloza M.D. on 09/28/2023 at 13:16
== END ==
PROVIDERS: Referring Provider Physician Assistant; Visit Provider Physician Assistant
DX: M25.562 Pain in left knee (principal)
CPT/HCPCS: 93971